=== PATIENT | female | born 1995 | race African-American/Black ===

== ENCOUNTER 2016-09-28 09:45 | Emergency (ER) | payer SELFPAY ==
[~2016-09-28] VITALS: Ht 157.5 cm; Wt 55.5 kg
[2016-09-28 10:23] LABS: HEMATOCRIT 38.7 % (36.0-46.0); MCH 26.5 PG (29.0-34.0); MCHC 31.8 G/DL (30.0-36.0); MCV 83.2 FL (83-99); MEAN PLAT.VOLUME 9.8 uM^3 (9.5-12.4); PLATELET COUNT 259 K/uL (156-360); RBC DIS.WIDTH-CV 13.8 % (11.8-14.6); RBC DIS.WIDTH-SD 41.9 % (39-53); RED BLOOD COUNT 4.65 M/uL (3.80-5.20); WHITE BLOOD COUNT 5.3 K/uL (4.1-10.2)
[2016-09-28 10:31] LABS: CHLORIDE 109 mEq/L (99-109); POTASSIUM 3.5 mEq/L (3.7-5.4); SODIUM 138 mEq/L (136-147)
[2016-09-28 10:32] LABS: GLUCOSE 87 mg/dL (70-99)
[2016-09-28 10:34] LABS: ANION GAP 7 MEQ/L (2-14)
[2016-09-28 10:37] LABS: UREA NITROGEN (BUN) 12 mg/dL (9-23)
[2016-09-28 10:41] LABS: GFR ESTIMATE (CALCULATED) > 59 mL/min/
[2016-09-28 10:45] LABS: QUANTITATIVE HCG < 4.0 MIU/ML
[2016-09-28] MEDS ORDERED: IMODIUM MS REL1 EACH PO (11:45)
[2016-09-28] MEDS ORDERED: BENTYL20 MG PO (11:45)
[2016-09-28] MEDS ORDERED: ZOFRAN ODT4 MG PO (11:45)
[2016-09-28 12:18] VITALS: BP 120/81
[2016-09-28 14:08] LABS: EOSINOPHIL (%) 0.9 % (0-5); EOSINOPHIL COUNT 0.1 K/uL (0-0.3); INSTRUMENT ABS NEUTROPHIL CT 3.4 K/uL; LYMPHOCYTE COUNT 1.2 K/uL (1.0-2.8); MONOCYTE (%) 11.1 % (3-12); MONOCYTE COUNT 0.6 K/uL (0-0.8); NEUTROPHIL (%) 64.2 % (45-76); NEUTROPHIL COUNT 3.4 K/uL (1.8-6.4)
== END 2016-09-28 12:18 | disposition home or self-care (01) ==
LOC: EME 09:45
PROVIDERS: Emergency Medicine
DX: K52.9 Noninfective gastroenteritis and colitis, unspecified (principal)
CPT/HCPCS: 80048; 83630; 84702; 85025; 87493; 99281; 99284; J2405; J7030

== ENCOUNTER 2017-03-24 06:13 | Emergency (ER) | payer OTHER ==
[~2017-03-24] VITALS: Ht 162.6 cm; Wt 62.8 kg
[~2017-03-24 06:13] MED LIST: BENTYL20 MG PO; IMODIUM MS REL1 EACH PO; ZOFRAN ODT4 MG PO
[2017-03-24 07:25] LABS: ADD MIUA? YES; BILIRUBIN NEGATIVE; BLOOD LARGE; COLOR YELLOW ((YELLOW)); GLUCOSE (STRIP) NEGATIVE; KETONES NEGATIVE; LEUKOCYTES LARGE; NITRITE NEGATIVE; PROTEIN (STRIP) 100; SPECIFIC GRAVITY 1.024 (1.000-1.030); UROBILINOGEN 0.2 MG/DL (0.2-1.0)
[2017-03-24 07:50] LABS: BACTERIA 2+ /HPF; CASTS NONE SEEN /LPF; CRYSTALS NONE SEEN; EPITHELIAL CELLS RARE /HPF; MUCUS RARE /LPF; RED BLOOD CELLS 30-40 /HPF (0-5); UCUL ADDED? YES; WHITE BLOOD CELLS TNTC /HPF (0-5)
[2017-03-24] MEDS ORDERED: CIPRO500 MG PO (08:36)
[2017-03-24 08:41] VITALS: BP 159/82
== END 2017-03-24 08:44 | disposition home or self-care (01) ==
LOC: EME 06:13
PROVIDERS: Emergency Medicine
DX: N39.0 Urinary tract infection, site not specified (principal)
CPT/HCPCS: 81003; 87086; 99281; 99283